=== PATIENT | male | born 1975 | race Hispanic/Latino ===

== ENCOUNTER 2018-02-04 06:23 | Inpatient (IN) | payer MEDICARE ==
[2018-02-04] MEDS ORDERED: Sodium Chloride 0.9% 1,000 ML IV ONE ×2 (07:18→08:39)
--- NOTE | 2018-02-04 07:22 | C.PDOC ---
History Of Present Illness Patient JAS for evaluation, is c/o feeling anxious, SOB and "like he is dying" since approx 6am today. He admits to drinking two full bottles of Robitussin DM last night at approx 7pm in order to get high. He denies SI/HI. He admits to prior abuse/overdose of Robitussin DM (dextromethorphan, guaifenesin). PMHx of DM II on Metformin, Depression/anxiety. Time Seen by Provider: 02/04/18 07:05 Chief Complaint (Nursing): Shortness Of Breath History Per: Patient History/Exam Limitations: no limitations Onset/Duration Of Symptoms: Hrs (approx 7pm last night ) Current Symptoms Are (Timing): Still Present Current Respiratory Medications: See Home Med List Past Medical History Reviewed: Historical Data, Nursing Documentation, Vital Signs Vital Signs: Last Vital Signs Temp 97.7 F 02/05/18 14:00 Pulse 71 02/05/18 06:00 Resp 18 02/05/18 06:00 BP 99/67 L 02/05/18 06:00 Pulse Ox 97 02/05/18 14:25 - Medical History PMH: Anxiety, Depression, Diabetes, HTN, Schizophrenia - [facility] Procedures GROUP PSYCHOTHERAPY (07/19/16) INDIVIDUAL PSYCHOTHERAPY, SUPPORTIVE (07/19/16) Family History: States: No Known Family Hx - Social History Hx Alcohol Use: Yes Hx Substance Use: No - Immunization History Hx Tetanus Toxoid Vaccination: Yes Hx Influenza Vaccination: Yes Hx Pneumococcal Vaccination: Yes Review Of Systems Constitutional: Positive for: Malaise. Negative for: Fever Cardiovascular: Negative for: Chest Pain, Palpitations Respiratory: Positive for: Shortness of Breath Gastrointestinal: Positive for: Nausea. Negative for: Vomiting, Abdominal Pain , Diarrhea Neurological: Negative for: Weakness, Numbness, Headache, Dizziness Physical Exam - Physical Exam Appears: Well, Non-toxic, Other (anxious appearing ) Skin: Normal Color, Warm, Dry Eye(s): bilateral: Normal Inspection Oral Mucosa: Moist Cardiovascular: Rhythm Regular Respiratory: Normal Breath Sounds, No Accessory Muscle Use, No Rales, No Rhonchi , No Wheezing, Other (mildly tachypnic) Gastrointestinal/Abdominal: Normal Exam, Bowel Sounds, Soft, No Tenderness Extremity: Normal ROM, No Tenderness, No Pedal Edema, No Calf Tenderness Neurological/Psych: Oriented x3, Normal Speech, Normal Cognition ED Course And Treatment - Laboratory Results Result Diagrams: 02/05/18 06:15 02/05/18 06:15 ECG: Interpreted By Me, Viewed By Me (NSR 85 bpm, normal axis, QTc 471ms, no acute ST changes) ECG Interpretation: Normal O2 Sat by Pulse Oximetry: 97 (RA) Pulse Ox Interpretation: Normal Progress Note: Blood work, EKG, UA, UDS ordered and reviewed. Patient given IV NS bolus and Ativan 1mg IV. 7:20am- Spoke with Joy at [facility]. Recommends blood work including tylenol & ASA levels, EKG, supportive care since ingestion was >12 hrs ago. 8:45am- Discussed patient with wastewater analyst lab analyst Dr. Cindy Alcaraz, agrees with ICU admission for robitussin overdose, hyponatremia, elevated CK, elevated lactate. 8:55am- Dr. Palm agrees with admission to his service (covers for patient's PMD). Reevaluation Time: 08:40 Reassessment Condition: Improved (Patient resting more comfortably, states he feels better.) Critical Care Time - Critical Care Note Total Time (in mins): 40 Documented critical care: time excludes all time spent performing seperately billable procedures. Disposition - Disposition Disposition: HOSPITALIZED Disposition Time: 08:47 Condition: FAIR - Clinical Impression Clinical Impression: Hyponatremia, Elevated CK, Dextromethorphan overdose, High serum lactate Decision To Admit - Pt Status Changed To: Hospital Disposition Of: Inpatient - Admit Certification Admit to Inpatient:: After my assessment, the patient will require hospitalization for at least two midnights. This is because of the severity of symptoms shown, intensity of services needed, and/or the medical risk in this patient being treated as an outpatient. - InPatient: Physician Admission Certification: I certify that this patient requires 2 or more midnights of care for the following reason:: see notes - . Bed Request Type: ICU Admitting Physician: Radha Palm Patient Diagnosis: Hyponatremia, Elevated CK, Dextromethorphan overdose, High serum lactate
[2018-02-04 07:23] LABS: BASO # 0.1 K/uL (0.0-0.2); BASO % 0.5 % (0.0-2.0); EOS % 0.4 % (0.0-4.0); HEMOGLOBIN 11.3 g/dL (12.0-18.0); LYMPH # 1.8 K/uL (1.0-4.3); LYMPH % 16.6 % (20.0-40.0); MEAN CELL VOLUME 79.8 fL (80.0-94.0); MEAN CORPUSCULAR HEMOGLOBIN 26.9 pg (27.0-31.0); MEAN CORPUSCULAR HGB CONC 33.7 g/dL (33.0-37.0); MEAN PLATELET VOLUME 7.3 fL (7.2-11.7); MONO # 0.5 K/uL (0.0-0.8); MONO % 4.9 % (0.0-10.0); NEUT # 8.6 K/uL (1.8-7.0); NEUT % 77.6 % (50.0-75.0); RBC 4.2 Mil/uL (4.40-5.90); RED CELL DISTRIBUTION WIDTH 13.6 % (11.5-14.5); WHITE BLOOD COUNT 11.1 K/uL (4.8-10.8)
[2018-02-04] MEDS ORDERED: Sodium Chloride 0.9% 1,000 ML ONE (07:27)
[2018-02-04 07:30] LABS: INR 1.1; PROTHROMBIN TIME 12.2 SECONDS (9.7-12.2)
[2018-02-04 07:40] LABS: ACETAMINOPHEN < 10.0 ug/mL (10.0-30.0); SALICYLATE < 1.0 mg/dL 1
[2018-02-04 07:46] LABS: VENOUS BLOOD GAS BASE EXCESS -2.1 mmol/L (0.0-2.0); VENOUS BLOOD GAS PCO2 30 mmHg (40-60); VENOUS BLOOD GAS PO2 34 mm/Hg (30-55); VENOUS BLOOD PH 7.45 (7.32-7.43)
[2018-02-04 08:06] LABS: SQUAMOUS EPITHIAL < 1 /hpf (0-5); URINE BACTERIA RARE (<OCC); URINE BILIRUBIN NEGATIVE (NEGATIVE); URINE BLOOD NEGATIVE (NEGATIVE); URINE CLARITY Clear (Clear); URINE COLOR Straw (YELLOW); URINE GLUCOSE (UA) 1+ mg/dL (Normal); URINE LEUKOCYTE ESTERASE NEG Leu/uL (Negative); URINE PROTEIN NEGATIVE (NEGATIVE); URINE UROBILINOGEN NORMAL mg/dL (0.2-1.0)
[2018-02-04 08:23] LABS: ALB/GLOB RATIO 1.4 (1.0-2.1); ALBUMIN 4.1 g/dL (3.5-5.0); ALT/SGPT 36 U/L (21-72); AST/SGOT 34 U/L (17-59); BLOOD UREA NITROGEN 5 mg/dL (9-20); CALCIUM 8.1 mg/dl (8.6-10.4); GFR AFRICAN-AMERICAN > 60; GFR NON-AFRICAN AMERICAN > 60
[2018-02-04 08:33] LABS: B-TYPE NATRIURETIC PEPTIDE 31.9 pg/mL (0-450)
[2018-02-04] MEDS ORDERED: Potassium Chloride 20 mEq ER Tab PO STA (08:42)
[2018-02-04 08:45] LABS: BARBITURATES, UR NEGATIVE (NEGATIVE); BENZODIAZEPINES, UR NEGATIVE (NEGATIVE); OPIATES, UR NEGATIVE (NEGATIVE)
[2018-02-04] MEDS ORDERED: Potassium Chloride 20 mEq ER Tab PO ONE (08:48)
[2018-02-04 09:04] LABS: PHENCYCLIDINE, UR POSITIVE (NEGATIVE)
--- NOTE | 2018-02-04 10:42 | CP.PCM.CON ---
<Marce Phelps - Last Filed: 02/04/18 10:51> History of Present Illness - History of Present Illness History of Present Illness: Critical Care Consult Note Robitussin DM Overdose This is a 42 year old male with PMHx listed below presented to the ED with shortness of breath after taking Robitussin DM. Patient reports he drinks 2 bottles several times a month to get high. This time patient started to feel short of breath, tightening of his chest, which caused him to come to the ED. Patient denied any chest pain, shortness of breath, dizziness, n/v/d/c, or urinary complaints. Patients vitals stable, QTc not prolonged. Admitted to ICU for observation 2/2 hyponatremia. Patient is mentating well, responds to questions appropriately. PMHx: Schizophrenia, Depression, T2DM on Metformin PSHx: Denied Meds: Metformin, Lexapro, Seroquel All: citrus SHx: Denied any tobacco, ETOH, or illicit drug use - + UDS for PCP. Lives with roommate on SSI. FHx: Unremarkable POA: Mother: [phone] Past Patient History - Infectious Disease Hx of Infectious Diseases: None - Past Social History Smoking Status: Former Smoker - CARDIAC Hx Hypertension: Yes - PULMONARY Hx Tuberculosis: No - NEUROLOGICAL Hx Seizures: No - ENDOCRINE/METABOLIC Hx Diabetes Mellitus Type 2: Yes - HEMATOLOGICAL/ONCOLOGICAL Hx Human Immunodeficiency Virus (HIV): No - MUSCULOSKELETAL/RHEUMATOLOGICAL Hx Falls: No - GENITOURINARY/GYNECOLOGICAL Hx Sexually Transmitted Disorders: No - PSYCHIATRIC Hx Substance Use: No - SURGICAL HISTORY Hx Surgeries: Yes Other/Comment: fasciotomy ble - ANESTHESIA Hx Anesthesia: Yes Hx Anesthesia Reactions: No Meds Allergies/Adverse Reactions: Allergies Allergy/AdvReac Type Severity Reaction Status Date / Time ORANGE Allergy Verified 10/19/16 03:13 - Medications Medications: Current Medications Pantoprazole Sodium (Protonix Ec Tab) 40 mg PO DAILY JT Quetiapine Fumarate (Seroquel Xr) 50 mg PO DAILY JT Physical Exam - Constitutional Appears: No Acute Distress - Head Exam Head Exam: ATRAUMATIC, NORMAL INSPECTION, NORMOCEPHALIC - Eye Exam Eye Exam: EOMI, Normal appearance, PERRL - ENT Exam ENT Exam: Mucous Membranes Dry - Respiratory Exam Respiratory Exam: Clear to Auscultation Bilateral, NORMAL BREATHING PATTERN - Cardiovascular Exam Cardiovascular Exam: REGULAR RHYTHM - GI/Abdominal Exam GI & Abdominal Exam: Normal Bowel Sounds, Soft. absent: Distended, Tenderness - Extremities Exam Extremities exam: Positive for: normal inspection, pedal pulses present. Negative for: pedal edema, tenderness - Neurological Exam Neurological exam: Alert, CN II-XII Intact, Oriented x3 - Psychiatric Exam Psychiatric exam: Normal Affect, Normal Mood - Skin Skin Exam: Dry, Intact, Normal Color, Warm Results - Vital Signs Recent Vital Signs: Last Vital Signs Temp 98.2 F 02/04/18 06:32 Pulse 84 02/04/18 09:51 Resp 24 02/04/18 09:51 BP 121/72 02/04/18 09:09 Pulse Ox 98 02/04/18 09:51 - Labs Result Diagrams: 02/04/18 07:19 02/04/18 07:19 Labs: Laboratory Results - last 24 hr 02/04/18 02/04/18 02/04/18 07:19 07:19 07:19 WBC 11.1 H RBC 4.20 L Hgb 11.3 L D Hct 33.5 L MCV 79.8 L MCH 26.9 L MCHC 33.7 RDW 13.6 Plt Count 303 MPV 7.3 Neut % (Auto) 77.6 H Lymph % (Auto) 16.6 L Gordon % (Auto) 4.9 Eos % (Auto) 0.4 Baso % (Auto) 0.5 Neut # (Auto) 8.6 H Lymph # (Auto) 1.8 Gordon # (Auto) 0.5 Eos # (Auto) 0.0 Baso # (Auto) 0.1 PT 12.2 INR 1.1 APTT 37 H pO2 VBG pH VBG pCO2 VBG HCO3 VBG Total CO2 VBG O2 Sat (Calc) VBG Base Excess VBG Potassium Glucose Lactate Sodium 121 L Potassium 3.3 L [place] 89 L Carbon Dioxide 18 L Anion Gap 18 BUN 5 L Creatinine 0.8 Est GFR ( Amer) > 60 Est GFR (Non-Af Amer) > 60 POC Glucose (mg/dL) Random Glucose 124 H Calcium 8.1 L Total Bilirubin 0.6 AST 34 ALT 36 Alkaline Phosphatase 90 Total Creatine Kinase 554 H Troponin I < 0.0120 NT-Pro-B Natriuret Pep 31.9 Total Protein 6.9 Albumin 4.1 Globulin 2.8 Albumin/Globulin Ratio 1.4 Venous Blood Potassium Urine Color Urine Clarity Urine pH Ur Specific [place] Urine Protein Urine Glucose (UA) Urine Ketones Urine Blood Urine Nitrate Urine Bilirubin Urine Urobilinogen Ur Leukocyte Esterase Urine WBC (Auto) Urine RBC (Auto) Ur Squamous Epith Cells Urine Bacteria Urine Osmolality Ur Random Sodium Ur Random Potassium Salicylates Urine Opiates Screen Urine Methadone Screen Acetaminophen Ur Barbiturates Screen Ur Phencyclidine Scrn Ur Amphetamines Screen U Benzodiazepines Scrn U Oth Cocaine Metabols U Cannabinoids Screen Alcohol, Quantitative < 10 02/04/18 02/04/18 02/04/18 07:19 07:43 07:47 WBC RBC Hgb Hct MCV MCH MCHC RDW Plt Count MPV Neut % (Auto) Lymph % (Auto) Gordon % (Auto) Eos % (Auto) Baso % (Auto) Neut # (Auto) Lymph # (Auto) Gordon # (Auto) Eos # (Auto) Baso # (Auto) PT INR APTT pO2 34 VBG pH 7.45 H VBG pCO2 30 L VBG HCO3 22.5 VBG Total CO2 21.8 L VBG O2 Sat (Calc) 77.9 H VBG Base Excess -2.1 L VBG Potassium 3.1 L Glucose 131 H Lactate 3.4 H Sodium 122.0 L Potassium [place] 89.0 L Carbon Dioxide Anion Gap BUN Creatinine Est GFR ( Amer) Est GFR (Non-Af Amer) POC Glucose (mg/dL) Random Glucose Calcium Total Bilirubin AST ALT Alkaline Phosphatase Total Creatine Kinase Troponin I NT-Pro-B Natriuret Pep Total Protein Albumin Globulin Albumin/Globulin Ratio Venous Blood Potassium 3.1 L Urine Color Straw Urine Clarity Clear Urine pH 5.0 Ur Specific [place] 1.015 Urine Protein Negative Urine Glucose (UA) 1+ H Urine Ketones Negative Urine Blood Negative Urine Nitrate Negative Urine Bilirubin Negative Urine Urobilinogen Normal Ur Leukocyte Esterase Neg Urine WBC (Auto) 2 Urine RBC (Auto) < 1 Ur Squamous Epith Cells < 1 Urine Bacteria Rare Urine Osmolality Ur Random Sodium Ur Random Potassium Salicylates < 1.0 Urine Opiates Screen Urine Methadone Screen Acetaminophen < 10.0 L Ur Barbiturates Screen Ur Phencyclidine Scrn Ur Amphetamines Screen U Benzodiazepines Scrn U Oth Cocaine Metabols U Cannabinoids Screen Alcohol, Quantitative 02/04/18 02/04/18 02/04/18 07:47 07:48 08:50 WBC RBC Hgb Hct MCV MCH MCHC RDW Plt Count MPV Neut % (Auto) Lymph % (Auto) Gordon % (Auto) Eos % (Auto) Baso % (Auto) Neut # (Auto) Lymph # (Auto) Gordon # (Auto) Eos # (Auto) Baso # (Auto) PT INR APTT pO2 VBG pH VBG pCO2 VBG HCO3 VBG Total CO2 VBG O2 Sat (Calc) VBG Base Excess VBG Potassium Glucose Lactate Sodium Potassium [place] Carbon Dioxide Anion Gap BUN Creatinine Est GFR ( Amer) Est GFR (Non-Af Amer) POC Glucose (mg/dL) 166 H Random Glucose Calcium Total Bilirubin AST ALT Alkaline Phosphatase Total Creatine Kinase Troponin I NT-Pro-B Natriuret Pep Total Protein Albumin Globulin Albumin/Globulin Ratio Venous Blood Potassium Urine Color Urine Clarity Urine pH Ur Specific [place] Urine Protein Urine Glucose (UA) Urine Ketones Urine Blood Urine Nitrate Urine Bilirubin Urine Urobilinogen Ur Leukocyte Esterase Urine WBC (Auto) Urine RBC (Auto) Ur Squamous Epith Cells Urine Bacteria Urine Osmolality 364 Ur Random Sodium 80 Ur Random Potassium 14.7 Salicylates Urine Opiates Screen Negative Urine Methadone Screen Negative Acetaminophen Ur Barbiturates Screen Negative Ur Phencyclidine Scrn Positive H Ur Amphetamines Screen Negative U Benzodiazepines Scrn Negative U Oth Cocaine Metabols Negative U Cannabinoids Screen Negative Alcohol, Quantitative Assessment & Plan - Assessment and Plan (Free Text) Assessment: This is a 42 year old male with PMHx listed below presented to the ED with shortness of breath after taking Robitussin DM. Patient reports he drinks 2 bottles several times a month to get high. This time patient started to feel short of breath, tightening of his chest, which caused him to come to the ED. Patient denied any chest pain, shortness of breath, dizziness, n/v/d/c, or urinary complaints. Patients vitals stable, QTc not prolonged. Admitted to ICU for observation 2/2 hyponatremia. Patient is mentating well, responds to questions appropriately. Plan: Neuro: GCS15 A: Hyponatremia - 121 on admission, patient is AAO x3 no neurological deficits noted - Serum osm normal - Received 1 L in ED - Will normalize over time Psych: A: Schizophrenia, Depression - Restarted seroquel - Psych eval A: PCP Use Disorder - + UDS - Drug test pending - Psych eval Prophylaxis - Protonix - SCDs Disposition: Patient is transferred to telemetry. Pending psych eval. DW Marce Matias DO, PGY-1 <Marcial Alcaraz - Last Filed: 02/04/18 11:50> Meds - Medications Medications: Current Medications Escitalopram Oxalate (Lexapro) 10 mg PO DAILY JT Gabapentin (Neurontin) 300 mg PO TID JT Lorazepam (Ativan) 1 mg PO Q6H PRN PRN Reason: Agitation Olanzapine (Zyprexa) 10 mg PO HS JT Pantoprazole Sodium (Protonix Ec Tab) 40 mg PO DAILY JT Results - Vital Signs Recent Vital Signs: Last Vital Signs Temp 98.2 F 02/04/18 06:32 Pulse 84 02/04/18 09:51 Resp 24 02/04/18 09:51 BP 121/72 02/04/18 09:09 Pulse Ox 98 02/04/18 09:51 - Labs Result Diagrams: 02/04/18 07:19 02/04/18 07:19 Labs: Laboratory Results - last 24 hr 02/04/18 02/04/18 02/04/18 07:19 07:19 07:19 WBC 11.1 H RBC 4.20 L Hgb 11.3 L D Hct 33.5 L MCV 79.8 L MCH 26.9 L MCHC 33.7 RDW 13.6 Plt Count 303 MPV 7.3 Neut % (Auto) 77.6 H Lymph % (Auto) 16.6 L Gordon % (Auto) 4.9 Eos % (Auto) 0.4 Baso % (Auto) 0.5 Neut # (Auto) 8.6 H Lymph # (Auto) 1.8 Gordon # (Auto) 0.5 Eos # (Auto) 0.0 Baso # (Auto) 0.1 PT 12.2 INR 1.1 APTT 37 H pO2 VBG pH VBG pCO2 VBG HCO3 VBG Total CO2 VBG O2 Sat (Calc) VBG Base Excess VBG Potassium Glucose Lactate Sodium 121 L Potassium 3.3 L [place] 89 L Carbon Dioxide 18 L Anion Gap 18 BUN 5 L Creatinine 0.8 Est GFR ( Amer) > 60 Est GFR (Non-Af Amer) > 60 POC Glucose (mg/dL) Random Glucose 124 H Calcium 8.1 L Phosphorus Magnesium Total Bilirubin 0.6 AST 34 ALT 36 Alkaline Phosphatase 90 Total Creatine Kinase 554 H Troponin I < 0.0120 NT-Pro-B Natriuret Pep 31.9 Total Protein 6.9 Albumin 4.1 Globulin 2.8 Albumin/Globulin Ratio 1.4 Venous Blood Potassium Urine Color Urine Clarity Urine pH Ur Specific [place] Urine Protein Urine Glucose (UA) Urine Ketones Urine Blood Urine Nitrate Urine Bilirubin Urine Urobilinogen Ur Leukocyte Esterase Urine WBC (Auto) Urine RBC (Auto) Ur Squamous Epith Cells Urine Bacteria Urine Osmolality Ur Random Sodium Ur Random Potassium Salicylates Urine Opiates Screen Urine Methadone Screen Acetaminophen Ur Barbiturates Screen Ur Phencyclidine Scrn Ur Amphetamines Screen U Benzodiazepines Scrn U Oth Cocaine Metabols U Cannabinoids Screen Alcohol, Quantitative < 10 02/04/18 02/04/18 02/04/18 07:19 07:43 07:47 WBC RBC Hgb Hct MCV MCH MCHC RDW Plt Count MPV Neut % (Auto) Lymph % (Auto) Gordon % (Auto) Eos % (Auto) Baso % (Auto) Neut # (Auto) Lymph # (Auto) Gordon # (Auto) Eos # (Auto) Baso # (Auto) PT INR APTT pO2 34 VBG pH 7.45 H VBG pCO2 30 L VBG HCO3 22.5 VBG Total CO2 21.8 L VBG O2 Sat (Calc) 77.9 H VBG Base Excess -2.1 L VBG Potassium 3.1 L Glucose 131 H Lactate 3.4 H Sodium 122.0 L Potassium [place] 89.0 L Carbon Dioxide Anion Gap BUN Creatinine Est GFR ( Amer) Est GFR (Non-Af Amer) POC Glucose (mg/dL) Random Glucose Calcium Phosphorus Magnesium Total Bilirubin AST ALT Alkaline Phosphatase Total Creatine Kinase Troponin I NT-Pro-B Natriuret Pep Total Protein Albumin Globulin Albumin/Globulin Ratio Venous Blood Potassium 3.1 L Urine Color Straw Urine Clarity Clear Urine pH 5.0 Ur Specific [place] 1.015 Urine Protein Negative Urine Glucose (UA) 1+ H Urine Ketones Negative Urine Blood Negative Urine Nitrate Negative Urine Bilirubin Negative Urine Urobilinogen Normal Ur Leukocyte Esterase Neg Urine WBC (Auto) 2 Urine RBC (Auto) < 1 Ur Squamous Epith Cells < 1 Urine Bacteria Rare Urine Osmolality Ur Random Sodium Ur Random Potassium Salicylates < 1.0 Urine Opiates Screen Urine Methadone Screen Acetaminophen < 10.0 L Ur Barbiturates Screen Ur Phencyclidine Scrn Ur Amphetamines Screen U Benzodiazepines Scrn U Oth Cocaine Metabols U Cannabinoids Screen Alcohol, Quantitative 02/04/18 02/04/18 02/04/18 07:47 07:48 08:50 WBC RBC Hgb Hct MCV MCH MCHC RDW Plt Count MPV Neut % (Auto) Lymph % (Auto) Gordon % (Auto) Eos % (Auto) Baso % (Auto) Neut # (Auto) Lymph # (Auto) Gordon # (Auto) Eos # (Auto) Baso # (Auto) PT INR APTT pO2 VBG pH VBG pCO2 VBG HCO3 VBG Total CO2 VBG O2 Sat (Calc) VBG Base Excess VBG Potassium Glucose Lactate Sodium Potassium [place] Carbon Dioxide Anion Gap BUN Creatinine Est GFR ( Amer) Est GFR (Non-Af Amer) POC Glucose (mg/dL) 166 H Random Glucose Calcium Phosphorus Magnesium Total Bilirubin AST ALT Alkaline Phosphatase Total Creatine Kinase Troponin I NT-Pro-B Natriuret Pep Total Protein Albumin Globulin Albumin/Globulin Ratio Venous Blood Potassium Urine Color Urine Clarity Urine pH Ur Specific [place] Urine Protein Urine Glucose (UA) Urine Ketones Urine Blood Urine Nitrate Urine Bilirubin Urine Urobilinogen Ur Leukocyte Esterase Urine WBC (Auto) Urine RBC (Auto) Ur Squamous Epith Cells Urine Bacteria Urine Osmolality 364 Ur Random Sodium 80 Ur Random Potassium 14.7 Salicylates Urine Opiates Screen Negative Urine Methadone Screen Negative Acetaminophen Ur Barbiturates Screen Negative Ur Phencyclidine Scrn Positive H Ur Amphetamines Screen Negative U Benzodiazepines Scrn Negative U Oth Cocaine Metabols Negative U Cannabinoids Screen Negative Alcohol, Quantitative 02/04/18 02/04/18 10:54 10:54 WBC RBC Hgb Hct MCV MCH MCHC RDW Plt Count MPV Neut % (Auto) Lymph % (Auto) Gordon % (Auto) Eos % (Auto) Baso % (Auto) Neut # (Auto) Lymph # (Auto) Gordon # (Auto) Eos # (Auto) Baso # (Auto) PT INR APTT pO2 VBG pH VBG pCO2 VBG HCO3 VBG Total CO2 VBG O2 Sat (Calc) VBG Base Excess VBG Potassium Glucose Lactate Sodium Potassium [place] Carbon Dioxide Anion Gap BUN Creatinine Est GFR ( Amer) Est GFR (Non-Af Amer) POC Glucose (mg/dL) Random Glucose Calcium Phosphorus 3.4 Magnesium 1.4 L Total Bilirubin AST ALT Alkaline Phosphatase Total Creatine Kinase Troponin I NT-Pro-B Natriuret Pep Total Protein Albumin Globulin Albumin/Globulin Ratio Venous Blood Potassium Urine Color Urine Clarity Urine pH Ur Specific [place] Urine Protein Urine Glucose (UA) Urine Ketones Urine Blood Urine Nitrate Urine Bilirubin Urine Urobilinogen Ur Leukocyte Esterase Urine WBC (Auto) Urine RBC (Auto) Ur Squamous Epith Cells Urine Bacteria Urine Osmolality Ur Random Sodium Ur Random Potassium Salicylates Urine Opiates Screen Negative Urine Methadone Screen Negative Acetaminophen Ur Barbiturates Screen Negative Ur Phencyclidine Scrn Negative Ur Amphetamines Screen Negative U Benzodiazepines Scrn Negative U Oth Cocaine Metabols Negative U Cannabinoids Screen Negative Alcohol, Quantitative Assessment & Plan - Assessment and Plan (Free Text) Plan: Patient seen and examined at bedside. Patient with h/o schizophrenia, h/o polysubstance abuse presents to [facility] after attempting to "get high" with 2 bottles of robitussin DM. Patient notes he has been admitted to [facility] multiple times before for similar attempts. Patient denies any suicidal ideation, deneis any homocidal ideation. Patient's hemodynamics remains stable. NO EKG changes, QTC normal. -Above resident documents my clinical management and physical exam. -Hyponatremia: check chemistry, check UA, urine lytes and TSH, patient remains hemodynamically stable with no neurological changes. patient remains hemodynamically stable. -DVT ppx lovenox -PUD ppx not indicated - Date & Time Date: 02/04/18 Time: 11:50
[2018-02-04 11:19] LABS: BARBITURATES, UR NEGATIVE (NEGATIVE); BENZODIAZEPINES, UR NEGATIVE (NEGATIVE); OPIATES, UR NEGATIVE (NEGATIVE); PHENCYCLIDINE, UR NEGATIVE (NEGATIVE)
--- NOTE | 2018-02-04 11:19 | PCM.PSYCH ---
Initial Psychiatric Evaluation - Initial Psychiatric Evaluation Type of Admission: Voluntary Legal Status: Capacity Chief Complaint (in patient's own words): "I OD'ed on Robitussin" History of Present Illness and Precipitating Events: The patient is seen, chart reviewed and case discussed. Consultation was requested for his Robitussin overdose. This is a 43-year-old male, single with no child, on SSI for schizophrenia, lives with a roommate. The patient states he was trying to get high and drank 2 bottles of Robitussin- DM and that he felt like he was dying. He walked to the police station which is close to his house and he was brought to ER. He admits that this has happened before "many times." He denies all other drug use, including PCP, which came positive but due to dextromorphan. He has not been to any detox program for rehabilitation but he was in psychiatry "numerous times." He goes to [facility] outpatient clinic and he is on Zyprexa and Lexapro both 20 mg. He admits to feeling more psychotic lately; hearing more voices and feeling paranoid at times. However, he adamantly denies feeling depressed or suicidal. He is future oriented. The patient currently lives w/ a roommate. His family (mother, father, step mother, and sister) all live in [place], except his sister lives in [place]. He does not have a good relationship with his sister. The patient reports past use of ecstasy, marijuana, and ketamine back in the . He reports very occasional use of alcohol currently. The patient is currently taking Zyprexa, Lexapro and metformin 500 mg once a day. The patient reports that he has allergies to citrus (oranges, orange juice, etc. ). The patient has a past surgical history of b/l fasciotomy. The patient reports approximately 30 past hospitalizations for his schizophrenia. The patient's medical history includes Diabetes Mellitus II He sees Dr. Sary Barajas at [facility] for schizophrenia but only onec in 3 months. Current Medications: Active Medications Generic Name Dose Route Start Last Admin Trade Name Freq PRN Reason Stop Dose Admin Pantoprazole Sodium 40 mg 02/05/18 11:00 Protonix Ec Tab PO DAILY JT Quetiapine Fumarate 50 mg 02/05/18 10:00 Seroquel Xr PO DAILY JT Past Psychiatric History - Past Psychiatric History Previous Treatment History: Inpatient Pertinent Medical Hx (Current Medical&Sleep Prob, Allergies): Allergies Allergy/AdvReac Type Severity Reaction Status Date / Time ORANGE Allergy Verified 10/19/16 03:13 Pantoprazole Sodium [Protonix] 40 mg PO DAILY 07/19/16 Quetiapine Fumarate [Seroquel] 300 mg PO DAILY 07/19/16 OLANZapine [Zyprexa] 20 mg PO HS #30 tab 07/22/16 metFORMIN [glucOPHAGE] 500 mg PO DAILY #30 tab 07/22/16 Multivitamin [Multiple Vitamins] 1 each PO DAILY 09/25/16 Review of Systems - Psychiatric Psychiatric: Abnormal Sleep Pattern, Anxiety, Auditory Hallucinations, Difficulty Concentrating, Hallucinations, Paranoia. absent: Anhedonia, Homicidal Ideation, Suicidal Ideation Mental Status Examination - Personal Presentation Personal Presentation: Looks stated age - Affect Affect: Constricted - Motor Activity Motor Activity: Calm - Reliability in Providing Information Reliability in Providing Information: Good - Speech Speech: Organized - Mood Mood: Anxious - Formal Thought Process Formal Thought Process: Hallucinations - Hallucinations/Delusions Hallucinations: Auditory - Cognitive Functions Orientation: Person, Place, Situation, Time Sensorium: Alert Attention/Concentration: Easily distracted Estimate of Intelligence: Average Judgement: Intact, as evidence by: Insight regarding need for hospitalization Memory: Recent intact, as evidence by: Ability to recall events of the day, Remote intact, as evidenced by: Abilit to recall sig. life events - Risk Risk: Diminished functioning - Strength & Assets Inventory Strength & Assets Inventory: Cooperative - Limitations Limitations: Living alone, Other DSM 5 DX - DSM 5 DSM 5 Diagnosis: Chronic schizophrenia - acute exacerbation Dextromethorphan use d/o- severe - Recommended/Plan of Treatment Treatment Recommendations and Plan of Treatment: Resume his Zyprexa and lexapro Gabapentin for withdrawal As needed medications All risks, benefits and alternatives of the meds discussed, and the pt agreed and understood. Supportive therapy and psychoeducation MO for abstinence Consider rehab He can be transferred to [address] [place] [address] when medically cleared, AFTER discussing with the psychiatrist 34 min
[2018-02-04] MEDS ORDERED: Potassium Chloride 20 mEq ER Tab PO SCH (12:15)
[2018-02-04] MEDS ORDERED: Sodium Chloride 0.9% 1,000 ML IV SCH (12:15)
[2018-02-04 12:34] LABS: OSMOLALITY,URINE 85 mosm/kg (300-1000)
[2018-02-04] MEDS: Magnesium Sulfate 1 gm in D5W 1 GM/100 ML BAG IVPB SCH ×2 (13:01→13:20)
[2018-02-04] MEDS: Enoxaparin 40 mg Syringe SC SCH (13:03)
--- NOTE | 2018-02-04 13:42 | RAD ---
PROCEDURE: CHEST RADIOGRAPH, 1 VIEW HISTORY: SOB COMPARISON: 09/25/2016 FINDINGS: LUNGS: Clear. PLEURA: No pneumothorax or pleural fluid seen. CARDIOVASCULAR: Normal. OSSEOUS STRUCTURES: No significant abnormalities. VISUALIZED UPPER ABDOMEN: Normal. OTHER FINDINGS: None. IMPRESSION: No active disease.
--- NOTE | 2018-02-04 16:04 | CP.PCM.HP ---
History of Present Illness - History of Present Illness History of Present Illness: Patient BIBNilam for evaluation, is c/o feeling anxious, SOB and "like he is dying" since approx 6am today. He admits to drinking two full bottles of Robitussin DM last night at approx 7pm in order to get high. He denies SI/HI. He admits to prior abuse/overdose of Robitussin DM (dextromethorphan, guaifenesin). PMHx of DM II on Metformin, Depression/anxiety. Present on Admission - Present on Admission Any Indicators Present on Admission: No History of DVT/PE: No History of Uncontrolled Diabetes: No Urinary Catheter: No Decubitus Ulcer Present: No Review of Systems - Review of Systems All systems: reviewed and no additional remarkable complaints except (As mentioned in HPI) Past Patient History - Infectious Disease Hx of Infectious Diseases: None - Past Social History Smoking Status: Former Smoker - CARDIAC Hx Hypertension: Yes - PULMONARY Hx Tuberculosis: No - NEUROLOGICAL Hx Seizures: No - ENDOCRINE/METABOLIC Hx Diabetes Mellitus Type 2: Yes - HEMATOLOGICAL/ONCOLOGICAL Hx Human Immunodeficiency Virus (HIV): No - MUSCULOSKELETAL/RHEUMATOLOGICAL Hx Falls: No - GENITOURINARY/GYNECOLOGICAL Hx Sexually Transmitted Disorders: No - PSYCHIATRIC Hx Substance Use: No - SURGICAL HISTORY Hx Surgeries: Yes Other/Comment: fasciotomy ble - ANESTHESIA Hx Anesthesia: Yes Hx Anesthesia Reactions: No Meds Allergies/Adverse Reactions: Allergies Allergy/AdvReac Type Severity Reaction Status Date / Time ORANGE Allergy Verified 10/19/16 03:13 Physical Exam - Head Exam Head Exam: NORMAL INSPECTION - Eye Exam Eye Exam: Normal appearance - ENT Exam ENT Exam: Mucous Membranes Moist - Neck Exam Neck exam: Positive for: Normal Inspection - Respiratory Exam Respiratory Exam: Clear to Auscultation Bilateral - Cardiovascular Exam Cardiovascular Exam: REGULAR RHYTHM, +S1, +S2 - GI/Abdominal Exam GI & Abdominal Exam: Normal Bowel Sounds, Soft - Extremities Exam Extremities exam: Positive for: normal inspection - Neurological Exam Neurological exam: Alert, Oriented x3 - Psychiatric Exam Psychiatric exam: Normal Affect, Normal Mood - Skin Skin Exam: Normal Color, Warm Results - Vital Signs Recent Vital Signs: Last Vital Signs Temp 97.7 F 02/04/18 10:00 Pulse 71 02/04/18 14:00 Resp 17 02/04/18 14:00 BP 118/79 02/04/18 13:26 Pulse Ox 95 02/04/18 11:40 - Labs Result Diagrams: 02/06/18 05:37 02/06/18 05:38 Labs: Laboratory Results - last 24 hr 02/04/18 02/04/18 02/04/18 07:19 07:19 07:19 WBC 11.1 H RBC 4.20 L Hgb 11.3 L D Hct 33.5 L MCV 79.8 L MCH 26.9 L MCHC 33.7 RDW 13.6 Plt Count 303 MPV 7.3 Neut % (Auto) 77.6 H Lymph % (Auto) 16.6 L [place] % (Auto) 4.9 Eos % (Auto) 0.4 Baso % (Auto) 0.5 Neut # (Auto) 8.6 H Lymph # (Auto) 1.8 [place] # (Auto) 0.5 Eos # (Auto) 0.0 Baso # (Auto) 0.1 PT 12.2 INR 1.1 APTT 37 H pO2 VBG pH VBG pCO2 VBG HCO3 VBG Total CO2 VBG O2 Sat (Calc) VBG Base Excess VBG Potassium Glucose Lactate Sodium 121 L Potassium 3.3 L Chloride 89 L Carbon Dioxide 18 L Anion Gap 18 BUN 5 L Creatinine 0.8 Est GFR ( Amer) > 60 Est GFR (Non-Af Amer) > 60 POC Glucose (mg/dL) Random Glucose 124 H Serum Osmolality Calcium 8.1 L Phosphorus Magnesium Total Bilirubin 0.6 AST 34 ALT 36 Alkaline Phosphatase 90 Total Creatine Kinase 554 H Troponin I < 0.0120 NT-Pro-B Natriuret Pep 31.9 Total Protein 6.9 Albumin 4.1 Globulin 2.8 Albumin/Globulin Ratio 1.4 TSH 3rd Generation Venous Blood Potassium Urine Color Urine Clarity Urine pH Ur Specific [place] Urine Protein Urine Glucose (UA) Urine Ketones Urine Blood Urine Nitrate Urine Bilirubin Urine Urobilinogen Ur Leukocyte Esterase Urine WBC (Auto) Urine RBC (Auto) Ur Squamous Epith Cells Urine Bacteria Urine Osmolality Ur Random Sodium Ur Random Potassium Salicylates Urine Opiates Screen Urine Methadone Screen Acetaminophen Ur Barbiturates Screen Ur Phencyclidine Scrn Ur Amphetamines Screen U Benzodiazepines Scrn U Oth Cocaine Metabols U Cannabinoids Screen Alcohol, Quantitative < 10 02/04/18 02/04/18 02/04/18 07:19 07:43 07:47 WBC RBC Hgb Hct MCV MCH MCHC RDW Plt Count MPV Neut % (Auto) Lymph % (Auto) [place] % (Auto) Eos % (Auto) Baso % (Auto) Neut # (Auto) Lymph # (Auto) [place] # (Auto) Eos # (Auto) Baso # (Auto) PT INR APTT pO2 34 VBG pH 7.45 H VBG pCO2 30 L VBG HCO3 22.5 VBG Total CO2 21.8 L VBG O2 Sat (Calc) 77.9 H VBG Base Excess -2.1 L VBG Potassium 3.1 L Glucose 131 H Lactate 3.4 H Sodium 122.0 L Potassium Chloride 89.0 L Carbon Dioxide Anion Gap BUN Creatinine Est GFR ( Amer) Est GFR (Non-Af Amer) POC Glucose (mg/dL) Random Glucose Serum Osmolality Calcium Phosphorus Magnesium Total Bilirubin AST ALT Alkaline Phosphatase Total Creatine Kinase Troponin I NT-Pro-B Natriuret Pep Total Protein Albumin Globulin Albumin/Globulin Ratio TSH 3rd Generation Venous Blood Potassium 3.1 L Urine Color Straw Urine Clarity Clear Urine pH 5.0 Ur Specific [place] 1.015 Urine Protein Negative Urine Glucose (UA) 1+ H Urine Ketones Negative Urine Blood Negative Urine Nitrate Negative Urine Bilirubin Negative Urine Urobilinogen Normal Ur Leukocyte Esterase Neg Urine WBC (Auto) 2 Urine RBC (Auto) < 1 Ur Squamous Epith Cells < 1 Urine Bacteria Rare Urine Osmolality Ur Random Sodium Ur Random Potassium Salicylates < 1.0 Urine Opiates Screen Urine Methadone Screen Acetaminophen < 10.0 L Ur Barbiturates Screen Ur Phencyclidine Scrn Ur Amphetamines Screen U Benzodiazepines Scrn U Oth Cocaine Metabols U Cannabinoids Screen Alcohol, Quantitative 02/04/18 02/04/18 02/04/18 07:47 07:48 08:50 WBC RBC Hgb Hct MCV MCH MCHC RDW Plt Count MPV Neut % (Auto) Lymph % (Auto) [place] % (Auto) Eos % (Auto) Baso % (Auto) Neut # (Auto) Lymph # (Auto) [place] # (Auto) Eos # (Auto) Baso # (Auto) PT INR APTT pO2 VBG pH VBG pCO2 VBG HCO3 VBG Total CO2 VBG O2 Sat (Calc) VBG Base Excess VBG Potassium Glucose Lactate Sodium Potassium Chloride Carbon Dioxide Anion Gap BUN Creatinine Est GFR ( Amer) Est GFR (Non-Af Amer) POC Glucose (mg/dL) 166 H Random Glucose Serum Osmolality Calcium Phosphorus Magnesium Total Bilirubin AST ALT Alkaline Phosphatase Total Creatine Kinase Troponin I NT-Pro-B Natriuret Pep Total Protein Albumin Globulin Albumin/Globulin Ratio TSH 3rd Generation Venous Blood Potassium Urine Color Urine Clarity Urine pH Ur Specific [place] Urine Protein Urine Glucose (UA) Urine Ketones Urine Blood Urine Nitrate Urine Bilirubin Urine Urobilinogen Ur Leukocyte Esterase Urine WBC (Auto) Urine RBC (Auto) Ur Squamous Epith Cells Urine Bacteria Urine Osmolality 364 Ur Random Sodium 80 Ur Random Potassium 14.7 Salicylates Urine Opiates Screen Negative Urine Methadone Screen Negative Acetaminophen Ur Barbiturates Screen Negative Ur Phencyclidine Scrn Positive H Ur Amphetamines Screen Negative U Benzodiazepines Scrn Negative U Oth Cocaine Metabols Negative U Cannabinoids Screen Negative Alcohol, Quantitative 02/04/18 02/04/18 02/04/18 10:54 10:54 10:54 WBC RBC Hgb Hct MCV MCH MCHC RDW Plt Count MPV Neut % (Auto) Lymph % (Auto) [place] % (Auto) Eos % (Auto) Baso % (Auto) Neut # (Auto) Lymph # (Auto) [place] # (Auto) Eos # (Auto) Baso # (Auto) PT INR APTT pO2 VBG pH VBG pCO2 VBG HCO3 VBG Total CO2 VBG O2 Sat (Calc) VBG Base Excess VBG Potassium Glucose Lactate Sodium Potassium Chloride Carbon Dioxide Anion Gap BUN Creatinine Est GFR ( Amer) Est GFR (Non-Af Amer) POC Glucose (mg/dL) Random Glucose Serum Osmolality 261 L Calcium Phosphorus 3.4 Magnesium 1.4 L Total Bilirubin AST ALT Alkaline Phosphatase Total Creatine Kinase Troponin I NT-Pro-B Natriuret Pep Total Protein Albumin Globulin Albumin/Globulin Ratio TSH 3rd Generation 1.44 Venous Blood Potassium Urine Color Urine Clarity Urine pH Ur Specific [place] Urine Protein Urine Glucose (UA) Urine Ketones Urine Blood Urine Nitrate Urine Bilirubin Urine Urobilinogen Ur Leukocyte Esterase Urine WBC (Auto) Urine RBC (Auto) Ur Squamous Epith Cells Urine Bacteria Urine Osmolality 85 L Ur Random Sodium Ur Random Potassium Salicylates Urine Opiates Screen Negative Urine Methadone Screen Negative Acetaminophen Ur Barbiturates Screen Negative Ur Phencyclidine Scrn Negative Ur Amphetamines Screen Negative U Benzodiazepines Scrn Negative U Oth Cocaine Metabols Negative U Cannabinoids Screen Negative Alcohol, Quantitative Assessment & Plan (1) Dextromethorphan overdose Status: Acute (2) Elevated CK Status: Acute (3) Hyponatremia Status: Acute (4) Anxiety Status: Acute (5) Schizophrenia Status: Acute (6) Diabetes Status: Acute - Assessment and Plan (Free Text) Plan: Continue ICU monitor Follow sodium Accu-Chek Insulin sliding scale Psychiatry evaluation Supportive care DVT/GI prophylaxis
[2018-02-04 16:08] LABS: BASO % 0.4 % (0.0-2.0); EOS # 0.1 K/uL (0.0-0.7); EOS % 0.7 % (0.0-4.0); HEMOGLOBIN 13.2 g/dL (12.0-18.0); LYMPH # 2.6 K/uL (1.0-4.3); LYMPH % 22.2 % (20.0-40.0); MEAN CELL VOLUME 80.2 fL (80.0-94.0); MEAN CORPUSCULAR HEMOGLOBIN 26.9 pg (27.0-31.0); MEAN CORPUSCULAR HGB CONC 33.5 g/dL (33.0-37.0); MEAN PLATELET VOLUME 7.3 fL (7.2-11.7); MONO # 0.6 K/uL (0.0-0.8); MONO % 4.7 % (0.0-10.0); NEUT # 8.5 K/uL (1.8-7.0); RBC 4.92 Mil/uL (4.40-5.90); RED CELL DISTRIBUTION WIDTH 13.8 % (11.5-14.5); WHITE BLOOD COUNT 11.8 K/uL (4.8-10.8)
[2018-02-04 16:40] LABS: ALB/GLOB RATIO 1.4 (1.0-2.1); ALBUMIN 4.6 g/dL (3.5-5.0); ALT/SGPT 36 U/L (21-72); AST/SGOT 43 U/L (17-59); BLOOD UREA NITROGEN 6 mg/dL (9-20); CALCIUM 9.4 mg/dl (8.6-10.4); GFR AFRICAN-AMERICAN > 60; GFR NON-AFRICAN AMERICAN > 60
[2018-02-05 06:22] LABS: BASO # 0.1 K/uL (0.0-0.2); BASO % 0.8 % (0.0-2.0); EOS # 0.3 K/uL (0.0-0.7); EOS % 2.9 % (0.0-4.0); LYMPH # 1.9 K/uL (1.0-4.3); LYMPH % 21.4 % (20.0-40.0); MEAN CELL VOLUME 80.8 fL (80.0-94.0); MEAN CORPUSCULAR HEMOGLOBIN 27.7 pg (27.0-31.0); MEAN CORPUSCULAR HGB CONC 34.2 g/dL (33.0-37.0); MEAN PLATELET VOLUME 7.6 fL (7.2-11.7); MONO # 0.7 K/uL (0.0-0.8); MONO % 7.3 % (0.0-10.0); NEUT # 6.1 K/uL (1.8-7.0); NEUT % 67.6 % (50.0-75.0); NRBC % 0.1 % (0.0-2.0); RBC 4.69 Mil/uL (4.40-5.90); RED CELL DISTRIBUTION WIDTH 14.1 % (11.5-14.5); WHITE BLOOD COUNT 9.1 K/uL (4.8-10.8)
[2018-02-05 06:51] LABS: ALB/GLOB RATIO 1.4 (1.0-2.1); ALBUMIN 4.2 g/dL (3.5-5.0); ALT/SGPT 39 U/L (21-72); AST/SGOT 36 U/L (17-59); BLOOD UREA NITROGEN 13 mg/dL (9-20); CALCIUM 8.8 mg/dl (8.6-10.4); GFR AFRICAN-AMERICAN > 60; GFR NON-AFRICAN AMERICAN > 60
[2018-02-05] MEDS ORDERED: QUEtiapine 50 mg XR Tab PO SCH (10:00)
--- NOTE | 2018-02-05 11:33 | PCM.PYCHPN ---
Psychiatric Progress Note - Psychiatric Progress Note Patient seen today, length of contact: 15 min Patient Chief Complaint: "I'm better" Problems Identified/Issues Discussed: The pt is seen, chart reviewed, case discussed with staff. The pt is compliant with medications and reports no side-effects. CA used Symptoms are improving but needs more time to stabilize. After care discussed, support and psychoeducation given. Medication Change: No Medical Record Reviewed: Yes Mental Status Examination - Cognitive Function Orientation: Person, Place, Situation, Time Memory: Intact Attention: Poor Concentration: Poor Association: WNL Fund of Knowledge: WNL - Mood Mood: Depressed, Anxious - Affect Affect: Constricted - Speech Speech: Appropriate - Formal Thought Process Formal Thought Process: Hallucinations - Suicidal Ideation Suicidal Ideation: No - Homicidal Ideation Homicidal Ideation: No Goal/Treatment Plan - Goal/Treatment Plan Need for Continued Stay: Severe functional impairment, Other (medical) Progress Toward Problem(s) and Goals/Treatment Plan: Resume his Zyprexa and lexapro Gabapentin for withdrawal As needed medications All risks, benefits and alternatives of the meds discussed, and the pt agreed and understood. Supportive therapy and psychoeducation CA for abstinence Consider rehab He can be transferred to [address] [place] [address] when medically cleared, AFTER discussing with the psychiatrist
[2018-02-05] MEDS: Enoxaparin 40 mg Syringe SC SCH (11:51)
[2018-02-05] MEDS: Pantoprazole 40 mg EC Tab PO SCH (11:51)
[2018-02-06 05:49] LABS: BASO % 0.5 % (0.0-2.0); EOS # 0.3 K/uL (0.0-0.7); EOS % 3.6 % (0.0-4.0); HEMOGLOBIN 12.6 g/dL (12.0-18.0); LYMPH % 23.1 % (20.0-40.0); MEAN CELL VOLUME 81.1 fL (80.0-94.0); MEAN CORPUSCULAR HEMOGLOBIN 27.7 pg (27.0-31.0); MEAN CORPUSCULAR HGB CONC 34.2 g/dL (33.0-37.0); MEAN PLATELET VOLUME 7.5 fL (7.2-11.7); MONO # 0.5 K/uL (0.0-0.8); MONO % 5.4 % (0.0-10.0); NEUT # 5.9 K/uL (1.8-7.0); NEUT % 67.4 % (50.0-75.0); NRBC % 0.1 % (0.0-2.0); RBC 4.55 Mil/uL (4.40-5.90); RED CELL DISTRIBUTION WIDTH 14.2 % (11.5-14.5); WHITE BLOOD COUNT 8.8 K/uL (4.8-10.8)
[2018-02-06 06:15] LABS: ALB/GLOB RATIO 1.4 (1.0-2.1); ALT/SGPT 33 U/L (21-72); AST/SGOT 32 U/L (17-59); BLOOD UREA NITROGEN 11 mg/dL (9-20); CALCIUM 8.3 mg/dl (8.6-10.4); GFR AFRICAN-AMERICAN > 60; GFR NON-AFRICAN AMERICAN > 60
[2018-02-06 09:04] VITALS: TEMP 98.6; O2SAT 100
[2018-02-06] MEDS: Enoxaparin 40 mg Syringe SC SCH (09:33)
[2018-02-06] MEDS: Pantoprazole 40 mg EC Tab PO SCH (09:33)
[2018-02-06] MEDS ORDERED: Benzocaine/Menthol (Cepacol) Lozenge PO PRN (11:22)
[2018-02-06 12:31] VITALS: BP 141/79; PULSE 85; RESP 15
--- NOTE | 2018-02-06 13:18 | CP.PCM.DIS ---
Provider - Provider Date of Admission: 02/04/18 08:47 Attending physician: Radha Palm MD Time Spent in preparation of Discharge (in minutes): 25 Hospital Course - Lab Results Lab Results: Micro Results 02/04/18 11:15 Naris MRSA Culture (Admit) - Final MRSA NOT DETECTED Most Recent Lab Values WBC 8.8 K/uL (4.8-10.8) 02/06/18 05:37 RBC 4.55 Mil/uL (4.40-5.90) 02/06/18 05:37 Hgb 12.6 g/dL (12.0-18.0) 02/06/18 05:37 Hct 36.9 % (35.0-51.0) 02/06/18 05:37 MCV 81.1 fL (80.0-94.0) 02/06/18 05:37 MCH 27.7 pg (27.0-31.0) 02/06/18 05:37 MCHC 34.2 g/dL (33.0-37.0) 02/06/18 05:37 RDW 14.2 % (11.5-14.5) 02/06/18 05:37 Plt Count 293 K/uL (130-400) 02/06/18 05:37 MPV 7.5 fL (7.2-11.7) 02/06/18 05:37 Neut % (Auto) 67.4 % (50.0-75.0) 02/06/18 05:37 Lymph % (Auto) 23.1 % (20.0-40.0) 02/06/18 05:37 [place] % (Auto) 5.4 % (0.0-10.0) 02/06/18 05:37 Eos % (Auto) 3.6 % (0.0-4.0) 02/06/18 05:37 Baso % (Auto) 0.5 % (0.0-2.0) 02/06/18 05:37 Neut # (Auto) 5.9 K/uL (1.8-7.0) 02/06/18 05:37 Lymph # (Auto) 2.0 K/uL (1.0-4.3) 02/06/18 05:37 [place] # (Auto) 0.5 K/uL (0.0-0.8) 02/06/18 05:37 Eos # (Auto) 0.3 K/uL (0.0-0.7) 02/06/18 05:37 Baso # (Auto) 0.0 K/uL (0.0-0.2) 02/06/18 05:37 PT 12.2 SECONDS (9.7-12.2) 02/04/18 07:19 INR 1.1 02/04/18 07:19 APTT 37 SECONDS (21-34) H 02/04/18 07:19 pO2 34 mm/Hg (30-55) 02/04/18 07:43 VBG pH 7.45 (7.32-7.43) H 02/04/18 07:43 VBG pCO2 30 mmHg (40-60) L 02/04/18 07:43 VBG HCO3 22.5 mmol/L 02/04/18 07:43 VBG Total CO2 21.8 mmol/L (22-28) L 02/04/18 07:43 VBG O2 Sat (Calc) 77.9 % (40-65) H 02/04/18 07:43 VBG Base Excess -2.1 mmol/L (0.0-2.0) L 02/04/18 07:43 VBG Potassium 3.1 mmol/L (3.6-5.2) L 02/04/18 07:43 Sodium 122.0 mmol/l (132-148) L 02/04/18 07:43 Chloride 89.0 mmol/L (98-107) L 02/04/18 07:43 Glucose 131 mg/dl (75-110) H 02/04/18 07:43 Lactate 3.4 mmol/L (0.7-2.1) H 02/04/18 07:43 Sodium 142 mmol/L (132-148) 02/06/18 05:38 Potassium 3.9 mmol/L (3.6-5.2) 02/06/18 05:38 Chloride 106 mmol/L (98-107) 02/06/18 05:38 Carbon Dioxide 24 mmol/L (22-30) 02/06/18 05:38 Anion Gap 16 (10-20) 02/06/18 05:38 BUN 11 mg/dL (9-20) 02/06/18 05:38 Creatinine 0.9 mg/dL (0.8-1.5) 02/06/18 05:38 Est GFR ( Amer) > 60 02/06/18 05:38 Est GFR (Non-Af Amer) > 60 02/06/18 05:38 POC Glucose (mg/dL) 166 mg/dL (65-110) H 02/04/18 07:48 Random Glucose 159 mg/dL (75-110) H 02/06/18 05:38 Serum Osmolality 261 mosm/kg (272-300) L 02/04/18 10:54 Lactic Acid 0.9 mmol/L (0.7-2.1) 02/05/18 06:15 Calcium 8.3 mg/dl (8.6-10.4) L 02/06/18 05:38 Phosphorus 2.7 mg/dL (2.5-4.5) 02/06/18 05:38 Magnesium 2.2 mg/dL (1.6-2.3) 02/06/18 05:38 Total Bilirubin 0.3 mg/dL (0.2-1.3) 02/06/18 05:38 AST 32 U/L (17-59) 02/06/18 05:38 ALT 33 U/L (21-72) 02/06/18 05:38 Alkaline Phosphatase 100 U/L (38-126) 02/06/18 05:38 Total Creatine Kinase 681 U/L (55-170) H 02/06/18 05:38 Troponin I < 0.0120 ng/mL (0.00-0.120) 02/04/18 07:19 NT-Pro-B Natriuret Pep 31.9 pg/mL (0-450) 02/04/18 07:19 Total Protein 6.8 g/dL (6.3-8.3) 02/06/18 05:38 Albumin 4.0 g/dL (3.5-5.0) 02/06/18 05:38 Globulin 2.8 gm/dL (2.2-3.9) 02/06/18 05:38 Albumin/Globulin Ratio 1.4 (1.0-2.1) 02/06/18 05:38 TSH 3rd Generation 1.44 mIU/L (0.46-4.68) 02/04/18 10:54 Venous Blood Potassium 3.1 mmol/L (3.6-5.2) L 02/04/18 07:43 Urine Color Straw (YELLOW) 02/04/18 07:47 Urine Clarity Clear (Clear) 02/04/18 07:47 Urine pH 5.0 (5.0-8.0) 02/04/18 07:47 Ur Specific [place] 1.015 (1.003-1.030) 02/04/18 07:47 Urine Protein Negative mg/dL (NEGATIVE) 02/04/18 07:47 Urine Glucose (UA) 1+ mg/dL (Normal) H 02/04/18 07:47 Urine Ketones Negative mg/dL (NEGATIVE) 02/04/18 07:47 Urine Blood Negative (NEGATIVE) 02/04/18 07:47 Urine Nitrate Negative (NEGATIVE) 02/04/18 07:47 Urine Bilirubin Negative (NEGATIVE) 02/04/18 07:47 Urine Urobilinogen Normal mg/dL (0.2-1.0) 02/04/18 07:47 Ur Leukocyte Esterase Neg Sharath/uL (Negative) 02/04/18 07:47 Urine WBC (Auto) 2 /hpf (0-5) 02/04/18 07:47 Urine RBC (Auto) < 1 /hpf (0-3) 02/04/18 07:47 Ur Squamous Epith Cells < 1 /hpf (0-5) 02/04/18 07:47 Urine Bacteria Rare (<OCC) 02/04/18 07:47 Urine Osmolality 85 mosm/kg (300-1000) L 02/04/18 10:54 Ur Random Sodium 80 mmol/L 02/04/18 08:50 Ur Random Potassium 14.7 mmol/L 02/04/18 08:50 Urine Chloride 49 mmol/L (32-290) 02/04/18 08:50 Salicylates < 1.0 mg/dL 1 02/04/18 07:19 Urine Opiates Screen Negative (NEGATIVE) 02/04/18 10:54 Urine Methadone Screen Negative (NEGATIVE) 02/04/18 10:54 Acetaminophen < 10.0 ug/mL (10.0-30.0) L 02/04/18 07:19 Ur Barbiturates Screen Negative (NEGATIVE) 02/04/18 10:54 Ur Phencyclidine Scrn Negative (NEGATIVE) 02/04/18 10:54 Ur Amphetamines Screen Negative (NEGATIVE) 02/04/18 10:54 U Benzodiazepines Scrn Negative (NEGATIVE) 02/04/18 10:54 U Oth Cocaine Metabols Negative (NEGATIVE) 02/04/18 10:54 U Cannabinoids Screen Negative (NEGATIVE) 02/04/18 10:54 Alcohol, Quantitative < 10 mg/dl (0-10) 02/04/18 07:19 - Hospital Course Hospital Course: Patient was found to be hyponatremic with sodium of 120. Patient was monitored in ICU and slowly his sodium improved. Patient returned back to his baseline. He is cleared by psychiatry to be discharged home. Patient denies any suicidal ideations Discharge Exam - Head Exam Head Exam: ATRAUMATIC, NORMAL INSPECTION, NORMOCEPHALIC - Eye Exam Eye Exam: Normal appearance - Respiratory Exam Respiratory Exam: Clear to PA & Lateral - Cardiovascular Exam Cardiovascular Exam: REGULAR RHYTHM, +S1, +S2 - GI/Abdominal Exam GI & Abdominal Exam: Normal Bowel Sounds - Extremities Exam Extremities exam: normal inspection, pedal edema - Neurological Exam Neurological exam: Alert, Oriented x3 - Psychiatric Exam Psychiatric exam: Normal Affect, Normal Mood Discharge Plan - Follow Up Plan Condition: FAIR Disposition: HOME/ ROUTINE
--- NOTE | 2018-02-06 13:19 | CP.PCM.PN ---
Subjective - Date & Time of Evaluation Date of Evaluation: 02/05/18 Time of Evaluation: 10:30 - Subjective Subjective: Patient seen and examined No events overnight Objective - Vital Signs/Intake and Output Vital Signs (last 24 hours): Temp Pulse Resp BP Pulse Ox 98.6 F 85 15 141/79 100 02/06/18 12:00 02/06/18 12:00 02/06/18 12:00 02/06/18 12:00 02/06/18 12:00 Intake and Output: 02/06/18 02/06/18 06:59 18:59 Intake Total 1080 Output Total 1600 Balance -520 - Medications Medications: Current Medications Acetaminophen (Tylenol 325mg Tab) 650 mg PO Q6 PRN PRN Reason: pain Last Admin: 02/06/18 06:35 Dose: 650 mg Benzocaine/Menthol (Cepacol Sore Throat) 1 vivienne PO Q4 PRN PRN Reason: Sore Throat Last Admin: 02/06/18 12:24 Dose: 1 vivienne Enoxaparin Sodium (Lovenox) 40 mg SC DAILY [facility] Last Admin: 02/06/18 09:33 Dose: 40 mg Escitalopram Oxalate (Lexapro) 10 mg PO DAILY [facility] Last Admin: 02/06/18 09:33 Dose: 10 mg Gabapentin (Neurontin) 300 mg PO TID [facility] Last Admin: 02/06/18 09:34 Dose: 300 mg Olanzapine (Zyprexa) 10 mg PO HS [facility] Last Admin: 02/05/18 21:40 Dose: 10 mg Pantoprazole Sodium (Protonix Ec Tab) 40 mg PO DAILY [facility] Last Admin: 02/06/18 09:33 Dose: 40 mg - Labs Labs: 02/06/18 05:37 02/06/18 05:38 PT 12.2 SECONDS (9.7-12.2) 02/04/18 07:19 INR 1.1 02/04/18 07:19 APTT 37 SECONDS (21-34) H 02/04/18 07:19 - Head Exam Head Exam: NORMAL INSPECTION - Eye Exam Eye Exam: Normal appearance - ENT Exam ENT Exam: Mucous Membranes Moist - Respiratory Exam Respiratory Exam: Clear to Ausculation Bilateral - Cardiovascular Exam Cardiovascular Exam: REGULAR RHYTHM, +S1, +S2 - GI/Abdominal Exam GI & Abdominal Exam: Soft, Normal Bowel Sounds - Extremities Exam Extremities Exam: Normal Inspection - Neurological Exam Neurological Exam: Alert, Oriented x3 - Psychiatric Exam Psychiatric exam: Normal Affect, Normal Mood - Skin Skin Exam: Normal Color, Warm Assessment and Plan (1) Dextromethorphan overdose Status: Acute (2) Diabetes Status: Acute (3) Hyponatremia Status: Acute (4) Anxiety Status: Acute (5) Schizophrenia Status: Acute - Assessment and Plan (Free Text) Plan: Improved sodium Follow BMP Physical therapy evaluation Psych evaluation Transfer to floor Will discharge patient home once cleared by psychiatry
--- NOTE | 2018-02-06 13:33 | PCM.PYCHPN ---
Psychiatric Progress Note - Psychiatric Progress Note Patient seen today, length of contact: 17 min Patient Chief Complaint: "I'm fine" Problems Identified/Issues Discussed: The pt is seen, chart reviewed, case discussed with staff. The pt is compliant with medications and reports no side-effects. He is much better than before and seems yo be at baseline: vague AH, no SI/HI Support given He now wants to go home, attend AA and see his psychiatrist more frequently Cleared for d/c Medication Change: No Medical Record Reviewed: Yes Mental Status Examination - Cognitive Function Orientation: Person, Place, Situation, Time Memory: Intact Attention: WNL Concentration: Poor Association: WNL Fund of Knowledge: WNL - Mood Mood: Anxious - Affect Affect: Constricted - Speech Speech: Appropriate - Formal Thought Process Formal Thought Process: Hallucinations (rare) - Suicidal Ideation Suicidal Ideation: No - Homicidal Ideation Homicidal Ideation: No Goal/Treatment Plan - Goal/Treatment Plan Progress Toward Problem(s) and Goals/Treatment Plan: Resume his Zyprexa and lexapro Gabapentin for withdrawal As needed medications All risks, benefits and alternatives of the meds discussed, and the pt agreed and understood. Supportive therapy and psychoeducation [place] for abstinence Consider rehab Cleared for d/c
--- NOTE | 2018-02-07 12:15 | CARD ---
APPROVED REPORT EKG Measurement Heart [id number] <Conclusion> Normal sinus rhythm Normal ECG
== END 2018-02-06 14:40 | disposition home or self-care (01) | DRG 918 ==
LOC: C.ER 06:23 → C.9E 08:47 → C.9I 09:05
PROVIDERS: ADMIT Internal Medicine Critical Care Medicine; ATTEND Internal Medicine Critical Care Medicine
DX: T48.3X1A Poisoning by antitussives, accidental (unintentional), initial encounter (principal); E87.1 Hypo-osmolality and hyponatremia; Z87.891 Personal history of nicotine dependence; Z79.84 Long term (current) use of oral hypoglycemic drugs; I10 Essential (primary) hypertension; F41.9 Anxiety disorder, unspecified; E11.9 Type 2 diabetes mellitus without complications; Y92.009 Unspecified place in unspecified non-institutional (private) residence as the place of occurrence of the external cause; F16.10 Hallucinogen abuse, uncomplicated; F20.9 Schizophrenia, unspecified

== ENCOUNTER 2018-05-08 11:46 | Emergency (ER) | payer MEDICARE ==
[2018-05-08 11:51] VITALS: BMI 30.9
[2018-05-08] MEDS ORDERED: Multivitamin (MVI) 10 ML, Thiamine 100 MG, Folic Acid 1 MG in Sodium Chloride 0.9% 1,00... IV ONE (12:17)
[2018-05-08 12:40] LABS: BASO # 0.1 K/uL (0.0-0.2); EOS # 0.2 K/uL (0.0-0.7); EOS % 2.5 % (0.0-4.0); HEMOGLOBIN 12.4 g/dL (12.0-18.0); LYMPH # 2.9 K/uL (1.0-4.3); LYMPH % 35.7 % (20.0-40.0); MEAN CELL VOLUME 78.3 fL (80.0-94.0); MEAN CORPUSCULAR HEMOGLOBIN 26.9 pg (27.0-31.0); MEAN CORPUSCULAR HGB CONC 34.4 g/dL (33.0-37.0); MEAN PLATELET VOLUME 7.6 fL (7.2-11.7); MONO # 0.3 K/uL (0.0-0.8); NEUT # 4.6 K/uL (1.8-7.0); NEUT % 56.8 % (50.0-75.0); NRBC % 0.1 % (0.0-2.0); RBC 4.61 Mil/uL (4.40-5.90); RED CELL DISTRIBUTION WIDTH 14.5 % (11.5-14.5); WHITE BLOOD COUNT 8.1 K/uL (4.8-10.8)
[2018-05-08 12:52] LABS: ALB/GLOB RATIO 1.4 (1.0-2.1); ALBUMIN 4.3 g/dL (3.5-5.0); ALT/SGPT 42 U/L (21-72); AST/SGOT 26 U/L (17-59); BLOOD UREA NITROGEN 11 mg/dL (9-20); CALCIUM 9.1 mg/dl (8.6-10.4); GFR NON-AFRICAN AMERICAN > 60
[2018-05-08 12:54] LABS: URINE BILIRUBIN NEGATIVE (NEGATIVE); URINE BLOOD NEGATIVE (NEGATIVE); URINE CLARITY Clear (Clear); URINE COLOR Colorless (YELLOW); URINE GLUCOSE (UA) 3+ mg/dL (Normal); URINE LEUKOCYTE ESTERASE NEG Leu/uL (Negative); URINE PROTEIN NEGATIVE (NEGATIVE); URINE UROBILINOGEN NORMAL mg/dL (0.2-1.0)
--- NOTE | 2018-05-08 12:55 | C.PDOC ---
History Of Present Illness 42-year-old male, PMHx includes Depression, Diabetes, Schizophrenia and EtOh abuse, presents to the emergency department with complaints of "feeling like I' m going to ." Patient states he is feeling lack of breath, and that he will succumb to . Pt states he has felt this way in the past. He denies abdominal pain, nausea/vomiting, SI/HI or any other associated symptoms. No other complaints at this time. Time Seen by Provider: 05/08/18 12:06 Chief Complaint (Nursing): Substance Abuse Past Medical History Reviewed: Historical Data, Nursing Documentation, Vital Signs Vital Signs: Last Vital Signs Temp 98.4 F 05/08/18 14:14 Pulse 87 05/08/18 14:14 Resp 16 05/08/18 14:14 BP 118/71 05/08/18 14:14 Pulse Ox 95 05/08/18 14:14 - Medical History PMH: Anxiety, Depression, Diabetes, HTN, Schizophrenia - [facility] Procedures GROUP PSYCHOTHERAPY (07/19/16) INDIVIDUAL PSYCHOTHERAPY, SUPPORTIVE (07/19/16) Family History: States: No Known Family Hx - Social History Hx Alcohol Use: Yes (vodka) Hx Substance Use: No - Immunization History Hx Tetanus Toxoid Vaccination: No Hx Influenza Vaccination: No Hx Pneumococcal Vaccination: No Physical Exam - Physical Exam Appears: Non-toxic, No Acute Distress, Unkempt, Other (EtOH on breath) Skin: Warm, Dry, No Rash Head: Atraumatic, Normacephalic Eye(s): bilateral: Normal Inspection Nose: Normal Oral Mucosa: Moist Lips: Normal Appearing Neck: Normal ROM Chest: Symmetrical Cardiovascular: Rhythm Regular, No Murmur Respiratory: Normal Breath Sounds, No Accessory Muscle Use Gastrointestinal/Abdominal: Soft, No Tenderness Extremity: Normal ROM, No Deformity Neurological/Psych: Oriented x3, Normal Speech ED Course And Treatment - Laboratory Results Result Diagrams: 05/08/18 12:33 05/08/18 12:33 O2 Sat by Pulse Oximetry: 95 Pulse Ox Interpretation: Normal (RA) Medical Decision Making Medical Decision Making: Plan: * EKG * Chest X-Ray * Bloodwork * UA * Reassess and Disposition * Patient sleeping comfortably, states he feels safe to go home. Disposition - Disposition Disposition: HOME/ ROUTINE Disposition Time: 15:42 Condition: STABLE Instructions: Alcohol Use - When Is Drinking a Problem? Forms: [facility] (Mongolian) - POA Present On Arrival: None - Clinical Impression Clinical Impression: Alcohol abuse - Scribe Statement The provider has reviewed the documentation as recorded by the Scribe (Chloe Regan) Provider Attestation: All medical record entries made by the Scribe were at my direction and personally dictated by me. I have reviewed the chart and agree that the record accurately reflects my personal performance of the history, physical exam, medical decision making, and the department course for this patient. I have also personally directed, reviewed, and agree with the discharge instructions and disposition.
--- NOTE | 2018-05-08 12:55 | RAD ---
Chest x-ray single frontal view History: Detox. Comparison: 09/25/2016 Findings: Mild venous congestion. Right hilar prominence. Patchy increased markings at the left lung base. Mild cardiomegaly. Degenerative changes in the spine. Impression: Mild venous congestion. Right hilar prominence. Patchy increased markings at the left lung base. Mild cardiomegaly.
[2018-05-08 13:32] LABS: BARBITURATES, UR NEGATIVE (NEGATIVE); BENZODIAZEPINES, UR NEGATIVE (NEGATIVE); OPIATES, UR NEGATIVE (NEGATIVE); PHENCYCLIDINE, UR NEGATIVE (NEGATIVE)
[2018-05-08 16:08] VITALS: BP 128/77; PULSE 83; RESP 20; TEMP 98.2; O2SAT 96
--- NOTE | 2018-05-09 11:51 | CARD ---
APPROVED REPORT Date of service: 05/08/2018 EKG Measurement Heart [id number] [place] [id number] <Conclusion> Normal sinus rhythm Normal ECG
== END 2018-05-08 16:42 | disposition home or self-care (01) ==
LOC: C.ER 11:46
DX: F10.10 Alcohol abuse, uncomplicated (principal); F20.9 Schizophrenia, unspecified; E11.9 Type 2 diabetes mellitus without complications; I10 Essential (primary) hypertension
CPT/HCPCS: 71045; 80053; 81001; 82948; 83735; 84100; 85025; 93005; 96374; 99284; G0480; J3411; J7030